=== PATIENT | male | born 2000 | race Caucasian/White ===

== ENCOUNTER 2022-10-04 09:35 | Emergency (ER) | payer OTHER ==
[2022-10-04] MEDS ORDERED: Ciprofloxacin 0.3% Ophth Soln 2.5 ML Bottle ONE (10:00)
== END 2022-10-04 10:14 | disposition home or self-care (01) ==
LOC: LB.ED 09:35
DX: S05.01XA Injury of conjunctiva and corneal abrasion without foreign body, right eye, initial encounter (principal); Z88.0 Allergy status to penicillin; W22.8XXA Striking against or struck by other objects, initial encounter
CPT/HCPCS: 99283; A9270-GY